=== PATIENT | female | born 1990 | race Caucasian/White ===

== ENCOUNTER → 2021-01-02 | Outpatient (CLI) | payer OTHER ==
[~2021-01-02] MED LIST: ALAVERT10 M1 PO; AMOXIL500 MG PO; MOTRIN800 MG PO; NKHM; PANTOPRAZOLE40 M1; PRILOSEC20 M1 PO; PRILOSEC40 MG PO; PROTONIX40 MG PO; ZANTAC150 MG PO; ZOFRAN 4 MG ED2 TAB PO; ZOFRAN4 MG PO
== END | disposition home or self-care (01) ==
LOC: RAD 12:12
PROVIDERS: ATTEND Nurse Practitioner
DX: M25.571 Pain in right ankle and joints of right foot (principal)

== ENCOUNTER → 2021-06-19 | Outpatient (CLI) | payer OTHER | END | disposition home or self-care (01) | LOC: COVID19 15:50 | PROVIDERS: ATTEND Internal Medicine | DX: Z11.52 Encounter for screening for COVID-19 (principal) ==

== ENCOUNTER → 2023-07-03 | Outpatient (CLI) | payer OTHER | END | disposition home or self-care (01) | LOC: MRI 13:00 | PROVIDERS: ATTEND Nurse Practitioner | DX: M51.17 Intervertebral disc disorders with radiculopathy, lumbosacral region (principal); M48.07 Spinal stenosis, lumbosacral region ==

== ENCOUNTER 2023-11-12 08:58 | Emergency (ER) | payer OTHER ==
[~2023-11-12] VITALS: Ht 157.4 cm; Wt 90.7 kg
[2023-11-12] MEDS ORDERED: ZITHROMAX250 MG PO (09:42)
== END 2023-11-12 09:45 | disposition home or self-care (01) ==
LOC: ED 08:58
DX: M79.89 Other specified soft tissue disorders (principal); R22.9 Localized swelling, mass and lump, unspecified; T36.0X5A Adverse effect of penicillins, initial encounter; Z98.890 Other specified postprocedural states; Y92.89 Other specified places as the place of occurrence of the external cause

== ENCOUNTER 2025-02-26 20:32 | Emergency (ER) | payer OTHER ==
[~2025-02-26 20:32] MED LIST changes: +ZITHROMAX250 MG PO
[2025-02-26] MEDS ORDERED: Tdap Vaccine 0.5 ML SYR (Adult Vaccine) IM ONE (21:05)
[2025-02-26] MEDS ORDERED: IBUPROFEN 600 MG TAB PO ONE (21:35)
[2025-02-26] MEDS ORDERED: ACETAMINOPHEN 325 MG TAB PO ONE (21:35)
[2025-02-26] MEDS ORDERED: CEPHALEXIN500 M1 PO (21:48)
[2025-02-26] MEDS ORDERED: CEPHALEXIN 500 MG CAP PO ONE (21:50)
== END 2025-02-26 21:55 | disposition home or self-care (01) ==
LOC: ED 20:32
DX: S81.032A Puncture wound without foreign body, left knee, initial encounter (principal); Z79.899 Other long term (current) drug therapy; Z98.890 Other specified postprocedural states; W45.0XXA Nail entering through skin, initial encounter; Y93.89 Activity, other specified; Y92.89 Other specified places as the place of occurrence of the external cause; Y99.8 Other external cause status